=== PATIENT | female | born 1990 | race African-American/Black ===

== ENCOUNTER 2018-03-26 13:16 | Emergency (ER) | payer SELFPAY ==
[~2018-03-26] VITALS: Ht 149.9 cm; Wt 99.8 kg
--- NOTE | 2018-03-26 13:20 | NUR ---
ED Nurse Note: Pt came in from home due to swelling on bilateral feet " after eating a hamburger last night." No acute distres noted. VSS. A + O x4.
--- NOTE | 2018-03-26 14:04 | Emergency Room Report ---
History of Present Illness General Chief Complaint: Edema Source: Patient (Joon Falk) Present Illness HPI 27-year-old female patient presents the ER with left finger swelling and pain x 2 weeks. Contrary to triage note patient does not report swelling in bilateral feet, patient is complaining of swelling in left hand. States that her left ring finger "has a bone sticking out". Denies acute injury or trauma. Reports swelling and pain symptoms at site of injury. Reports has been present for the past 2 weeks. Denies fever, chest pain, shortness of breath. Reports history of schizophrenia, states she takes Seroquel. Denies thoughts of hurting himself or others at this time. Reports she is right-hand dominant. (Joon Falk) Allergies: Coded Allergies: No Known Allergies (Unverified , 03/26/18) Patient History Past Medical History: see triage record Last Menstrual Period: 02/2018 Now: No Reviewed Nursing Documentation: PMH: Agreed; PSxH: Agreed (Joon Falk) Nursing Documentation-PMH Past Medical History: No History, Except For Hx Asthma: Yes (Joon Falk) Review of Systems All Other Systems: negative except mentioned in HPI (Joon Falk) Physical Exam Vital Signs Date Time Temp Pulse Resp B/P (MAP) Pulse Ox O2 Delivery O2 Flow Rate FiO2 03/26/18 13:24 98.4 105 20 117/80 99 Room Air Sp02 EP Interpretation: reviewed, normal General Appearance: well appearing, no apparent distress, alert, GCS 15, non- toxic Head: normocephalic, atraumatic Eyes: bilateral eye normal inspection, bilateral eye PERRL ENT: hearing grossly normal, normal pharynx, no angioedema, normal voice, uvula midline, moist mucus membranes Neck: full range of motion Respiratory: lungs clear, normal breath sounds, no rhonchi, no respiratory distress, no accessory muscle use, no wheezing, speaking full sentences Cardiovascular #1: regular rate, rhythm, no edema Cardiovascular #2: 2+ radial (R), 2+ radial (L) Gastrointestinal: non tender, soft, no mass, non-distended, no guarding, no rebound Genitourinary: no CVA tenderness Musculoskeletal: back normal, digits/nails normal, gait/station normal, normal range of motion - Full flexion extension at DIP, PIP, MCP joints, other - NVI, erythema, no edema, no ecchymosis, mild hypopigmented abrasion noted at skin, no bleeding, no gouty tophi, no warmth to touch, tender - Left ring finger at DIP joint Neurologic: alert, oriented x3, responsive, motor strength/tone normal, sensory intact Psychiatric: mood/affect normal Skin: no rash Lymphatic: no adenopathy (Joon Falk) Medical Decision Making PA Attestation Dr. Case is my supervising Physician whom patient management has been discussed with. (Joon Falk) Diagnostic Impression: Primary Impression: Finger abrasion ER Course Pt. presents to the ED c/o left hand pain and swelling. Ddx considered but are not limited to fracture, sprain, strain, contusion, dislocation. No erythema, no warmth to touch, no fever, nontoxic appearing, low suspicion for septic joint. Soft compartments, no pulselessness, no pallor, no paresthesias, low suspicion for compartment syndrome at this time. Vital signs: are WNL, pt. is afebrile Ordered X-ray and pain medication. ER COURSE Provided with pain medication. An X-ray of the left hand shows no acute fracture per the preliminary reading. Patient instructed on RICE method: rest, ice, compression, elevation. Patient instructed on rest, ice and heat. Patient instructed to be WBAT Contact information for orthopedic urgent care provided, follow-up with urgent care if unable to followup with primary care provider and get referral to evaluation specialist. Followup with primary care provider. Discuss referral to ortho/pain management/ PT as needed. Discuss further imaging with MRI/CT as needed. DISCHARGE: -Rx provided for Tylenol for pain symptoms. -Rx provided for bacitracin. At this time pt. is stable for d/c to home. Patient is resting comfortably, in no acute distress, nontoxic appearing, talking without difficulty. Will provide printed patient care instructions, and any necessary prescriptions. Patient instructed to follow with primary care provider in 3 - 5 days and to request further follow-up as needed. Care plan and follow up instructions have been discussed with the patient prior to discharge. Take medications as directed. Patient questions asked and answered. Patient reports understanding and agreement to treatment plan. ER precautions given, patient instructed to return to ER immediately for any new or worsening of symptoms. - Please note that this Emergency Department Report was dictated using [employer] manager technology software, occasionally this can lead to erroneous entry secondary to interpretation by the dictation equipment. (Joon Falk) Other X-Ray Diagnostic Results Other X-Ray Diagnostic Results : X-Ray ordered: Left hand # of Views/Limited Vs Complete: 3 View Indication: Pain EP Interpretation: Yes PA Xray: Interpretation reviewed, by supervising MD, and agrees with findings. Interpretation: no dislocation, no soft tissue swelling, no fractures Impression: No acute disease PA Scribe Text Clinton Falk PA-C (Joon Falk) Other X-Ray Diagnostic Results : Electronically Signed by: CHINTAN documentation reviewed by me and is accurate, Sean Case MD (Sean Case MD) Last Vital Signs Date Time Temp Pulse Resp B/P (MAP) Pulse Ox O2 Delivery O2 Flow Rate FiO2 03/26/18 13:24 98.4 105 20 117/80 99 Room Air Status: improved (Joon Falk) Disposition: HOME, SELF-CARE Condition: Stable Scripts Acetaminophen* (TYLENOL EXTRA STRENGTH*) 500 Mg Tablet 500 MG ORAL Q8H PRN for Prn Headache/Temp > 101, #30 TAB 0 Refills Prov: Joon Falk 03/26/18 Bacitracin/Polymyxin B Sulfate (BACITRACIN-POLYMYXIN OINTMENT) 28.35 Gm Oint...g. 1 APPLIC TP BID, #28 GM Prov: Joon Falk 03/26/18 Patient Instructions: Abrasion, [id number] Additional Instructions: Patient instructed to follow up with primary care provider and discuss further referral to orthopedics/physical therapy/pain management as needed. If unable to followup with PCP, followup with orthopedic urgent care in 5-7 days , call to schedule appointment. Patient instructed on RICE method: rest, ice, compression, elevation. Patient instructed to WBAT. Take medications as directed. Patient questions asked and answered. ER precautions given, patient instructed to return to ER immediately for any new or worsening of symptoms. [facility] [address] [address] [facility], [id number] [email or web address] Joon Falk Mar 26, 2018 14:04 Sean Case MD Mar 28, 2018 05:30
[2018-03-26] MEDS ORDERED: BACITRACIN-P28.35 GM TP (14:25)
[2018-03-26] MEDS ORDERED: TYLENOL EXTRA500 MG ORAL (14:25)
--- NOTE | 2018-03-26 14:30 | NUR ---
ED Nurse Note: Pt is clear to be discharged by ERMD. Discharge paper and prescription given, pt verbalized understanding of discharge instruction. AOx4, VSS. Wristband and IV line removed. Pt ambulated out with steady gait with all belongings. Addendum: 03/26/18 at 1448 by [facility] ED Nurse Note: Pt is clear to be discharged by ERMD. Discharge paper and prescription given, pt verbalized understanding of discharge instruction. AOx4, VSS. Wristband removed. Pt ambulated out with steady gait with all belongings.
--- NOTE | 2018-03-26 14:42 | Diagnostic Imaging Report ---
Indication: left hand pain. Findings: 3 views of the left hand were obtained. Normal alignment is demonstrated. No acute fractures, erosions, or periosteal reaction are seen. Soft tissues are unremarkable. Impression: No acute findings.
[2018-03-26 14:50] VITALS: BP 117/80
== END 2018-03-26 14:30 | disposition home or self-care (01) ==
LOC: EMR 14:28
DX: S60.415A Abrasion of left ring finger, initial encounter (principal); X58.XXXA Exposure to other specified factors, initial encounter; Y92.9 Unspecified place or not applicable
CPT/HCPCS: 99283

== ENCOUNTER 2018-04-09 13:25 | Emergency (ER) | payer SELFPAY ==
[~2018-04-09] VITALS: Ht 167.6 cm; Wt 65.8 kg
[2018-04-09 13:25] VITALS: BP 116/86
[~2018-04-09 13:25] MED LIST: BACITRACIN-P28.35 GM TP; TYLENOL EXTRA500 MG ORAL
--- NOTE | 2018-04-09 13:25 | NUR ---
ED Nurse Note: PT BROUGHT IN BY AMBULANCE FROM [facility]. AOX4. PT STATES SHE "CAN'T BREATH" AND THAT HER "THROAT IS CLOSING UP" AFTER EATING A HAMBURGER. PT UNCOOPERATIVE AND LAYING ON THE GROUND. NO SIGNS OF RESPIRATORY DISTRESS. RR16 WITH O2SAT 100% ON RA UPON ARRIVAL TO ED. NO RETRACTIONS NOTED AND NO SIGNS OF RESPIRATORY DISTRESS.
--- NOTE | 2018-04-09 13:42 | Emergency Room Report ---
History of Present Illness General Chief Complaint: Pain Source: Patient Present Illness HPI 27-year-old female presents to the emergency department brought by ambulance complaining initially of allergic reaction, and sensation of swelling in the throat, pain in the left hand as well. Then pt. changed her CC to LMF pain 10/ 10 in severity. hx of Arthritis of LMF. Patient denies trauma or fall. Patient reports that she is supposed to be taking Seroquel however she has not had any in a while and is due for an injection tomorrow. Patient denies SI, HI , hallucinations or delusions. Pt. denies fevers, chills or swollen tender lymph nodes. Denies rashes but reports itching. Denies new medications or body washes or creams. Denies swelling of the lips or tongue. Denies wheezing, or shortness of breath. Denies recent travel, recent illness or ill contacts. denies blisters, oral lesions, or sloughing of the skin. Denies erythema, warmth, or inability to bend the joints of the LMF. Allergies: Coded Allergies: No Known Allergies (Unverified , 03/26/18) Patient History Past Medical History: see triage record, psych hx Past Surgical History: none Pertinent Family History: none Last Menstrual Period: 04/02/18 Now: No Reviewed Nursing Documentation: PMH: Agreed; PSxH: Agreed Nursing Documentation-PMH Past Medical History: No History, Except For Hx Asthma: Yes Review of Systems All Other Systems: negative except mentioned in HPI Physical Exam Vital Signs Date Time Temp Pulse Resp B/P (MAP) Pulse Ox O2 Delivery O2 Flow Rate FiO2 04/09/18 13:16 98.4 99 16 111/82 99 Room Air Sp02 EP Interpretation: reviewed, normal General Appearance: no apparent distress, alert, GCS 15, non-toxic Head: normocephalic, atraumatic Eyes: bilateral eye normal inspection, bilateral eye PERRL ENT: hearing grossly normal, normal pharynx, normal voice, uvula midline, moist mucus membranes, other - No stridor Neck: full range of motion Respiratory: chest non-tender, lungs clear, normal breath sounds, no rhonchi, no respiratory distress, no accessory muscle use, no wheezing, speaking full sentences Cardiovascular #1: regular rate, rhythm, no edema Gastrointestinal: non tender, soft Musculoskeletal: back normal, gait/station normal, normal range of motion, other - chronic deformity of the LMF, no erythema, no localized ttp, no increased laxity or swelling. Neurologic: alert, oriented x3, responsive, motor strength/tone normal, sensory intact, normal gait, speech normal, grossly normal Psychiatric: other - Pt. has hypochondriac thoughts, able to carry normal conversation, however sometimes bizarre/ socially inappropriate requests. Skin: normal color, warm/dry, well hydrated, rash - eczema on the face- mild, eczema on the bilateral A/C's -mild Lymphatic: no adenopathy Medical Decision Making PA Attestation Dr. almaguer is my supervising Physician whom patient management has been discussed with. Diagnostic Impression: Primary Impression: Eczema Qualified Codes: L30.9 - Dermatitis, unspecified Additional Impression: Finger pain, left ER Course 27-year-old female presents to the emergency department brought by ambulance complaining initially of allergic reaction, and sensation of swelling in the throat, pain in the left hand as well. Then pt. changed her CC to LMF pain 10/ 10 in severity. hx of Arthritis of LMF. Patient denies trauma or fall. Patient reports that she is supposed to be taking Seroquel however she has not had any in a while and is due for an injection tomorrow. Patient denies SI, HI , hallucinations or delusions. Pt. denies fevers, chills or swollen tender lymph nodes. Denies rashes but reports itching. Denies new medications or body washes or creams. Denies swelling of the lips or tongue. Denies wheezing, or shortness of breath. Denies recent travel, recent illness or ill contacts. denies blisters, oral lesions, or sloughing of the skin. Denies erythema, warmth, or inability to bend the joints of the LMF. Ddx considered but are not limited to cellulitis, scabies, shingles, varicella, dermatitis, urticaria, eczema, tinea, viral exanthem, SJS, anaphylaxis, psychosis, -pt. supposed to be taking Seroquel IM Vital signs: are WNL, pt. is afebrile H&PE are most consistent with eczema, A significant allergic reaction noted no evidence of acute airway compromise, impending airway compromise or anaphylaxis at this time. ORDERS: none required at this time, the diagnosis is clinical ED INTERVENTIONS: -Tylenol PO -Seroquel PO DISCHARGE: At this time pt. is stable for d/c to home. Will provide printed patient care instructions, and any necessary prescriptions. Care plan and follow up instructions have been discussed with the patient prior to discharge. Last Vital Signs Date Time Temp Pulse Resp B/P (MAP) Pulse Ox O2 Delivery O2 Flow Rate FiO2 04/09/18 13:25 98.3 92 16 116/86 100 Room Air Disposition: HOME, SELF-CARE Condition: Stable Scripts Acetaminophen* (TYLENOL EXTRA STRENGTH*) 500 Mg Tablet 500 MG ORAL Q6H, #9 TAB 0 Refills Prov: Monica Billings 04/09/18 Patient Instructions: Eczema Additional Instructions: Take medications as directed. Follow up with a Primary Care Provider in 3-5 days, even if your symptoms have resolved. --Please review list of primary care clinics, if you do not already have a primary care provider Return sooner to ED if new symptoms occur, or current symptoms become worse. - Please note that this Emergency Department Report was dictated using [employer] auditor technology software, occasionally this can lead to erroneous entry secondary to interpretation by the dictation equipment. Monica Billings Apr 09, 2018 13:42
--- NOTE | 2018-04-09 13:48 | NUR ---
ED Nurse Note: PT AMBULATED TO AND FROM BATHROOM WITH STEADY GAIT WITHOUT ASSISTANCE.
[2018-04-09] MEDS ORDERED: TYLENOL EXTRA500 MG ORAL (14:32)
[2018-04-09 15:18] VITALS: BP 113/82
--- NOTE | 2018-04-09 15:19 | NUR ---
ED Nurse Note: PT SITTING PEACEFULLY IN BED IN [place]. AOX4. PRESCRIPTIONS AND DISCHARGE PAPERWORK EXPLAINED TO PT. PT VERBALIZES UNDERSTANDING AND DENIES ANY QUESTIONS AT THIS TIME. PRESCRIPTION AND DISCHARGE PAPERWORK GIVEN TO PT AND ID WRISTBAND REMOVED. PT BROUGHT IN BY AMBULANCE AND STATES SHE DOES NOT HAVE A RIDE HOME. ADDRESS CONFIRMED AND TAP CARD PROVIDED BY [employer]. PT STATES KNOWS HOW TO GET HOME BY BUS. DIRECTIONS AND TAP CARD GIVEN TO PT. PT WALKED OUT OF ER WITH STEADY GAIT AND ALL BELONGINGS.
== END 2018-04-09 15:20 | disposition home or self-care (01) ==
LOC: EDBD 13:25 → EMR 13:54
DX: M79.645 Pain in left finger(s) (principal); L30.9 Dermatitis, unspecified
CPT/HCPCS: 99282